=== PATIENT | female | born 1950 | race Caucasian/White ===

== ENCOUNTER 2016-10-12 14:54 | Emergency (ER) | payer MEDICARE ==
[2016-10-12 15:09] VITALS: BP 110/71; PULSE 73; RESP 20; TEMP 97.8; O2SAT 98
[2016-10-12] MEDS ORDERED: GABA100C4 PO (16:42)
[2016-10-12] MEDS ORDERED: ATOR10TA15 PO (16:42)
[2016-10-12] MEDS ORDERED: LISI2.5T3 PO (16:42)
[2016-10-12] MEDS ORDERED: GLIP5TAB8 PO (16:42)
[2016-10-12] MEDS ORDERED: CANA300T PO (16:42)
[2016-10-12 16:45] VITALS: BP 139/84; PULSE 67; RESP 18; O2SAT 100
[2016-10-12] MEDS ORDERED: SODIUM CHLOR 0.9% 1000 ML INJ 1,000 ML IV ONE (17:00)
--- NOTE | 2016-10-12 17:37 | PD ---
HPI . Dizziness Chief Complaint: Dizziness Time Seen by Provider: 16:57 Travel History International Travel<30 days: No Contact w/Intl Traveler<30days: No Traveled to known affect area: No History of Present Illness HPI This patient presents with about a 3 day history of lightheadedness and blurred vision. She states that she is a diabetic on oral hypoglycemics. She ran out of her oral hypoglycemic several days ago. She states that the pharmacy did not have any and stop so she was not able to get it refilled until couple days ago. She states that she is now back on her oral hypoglycemic but that the lightheadedness and blurred vision has persisted. She was seen at a doctor's office and had a fingerstick blood sugar done which was over 200. The patient reports that that is very high for her. Further reports that the doctor wanted her to come here and have a CT of her head. The patient does not have any headache. She does not have any localizing signs such as one-sided weakness. She reports no exacerbating factors with her dizziness. PFSH Past Medical History Diabetes: Yes Patient Takes Glucophage: No Tetanus Vaccination: > 5 Years Influenza Vaccination: No ?: Not Menopausal: Yes Past Surgical History Surgical History: No Previous Surgery Social History Alcohol Use: Yes (Occ.) Tobacco Use: No Substance Use: No Allergies-Medications (Allergen,Severity, Reaction): Coded Allergies: No Known Allergies (Unverified , 10/12/16) Reported Meds & Prescriptions Reported Meds & Active Scripts Active Reported Lisinopril 2.5 Mg Tab 2.5 Mg PO DAILY Gabapentin 100 Mg Cap 100 Mg PO BID Atorvastatin (Atorvastatin Calcium) 10 Mg Tab 10 Mg PO HS Glipizide 5 Mg Tab 5 Mg PO DAILY Take 30 minutes before a meal Invokana (Canagliflozin) 300 Mg Tab 300 Mg PO DAILY Take before 1st meal of day. Review of Systems Except as stated in HPI: all other systems reviewed are Neg Eyes: Positive: Blurred Vision HENT: Positive: Lightheadedness Physical Exam Narrative GENERAL: Patient is awake and alert and in no acute distress. SKIN: Warm and dry. HEAD: Atraumatic. Normocephalic. EYES: Pupils equal and round. Extraocular movements are intact. ENT: No nasal bleeding or discharge. Mucous membranes pink and moist. NECK: Trachea midline. Neck is supple. CARDIOVASCULAR: Regular rate and rhythm. Heart sounds are normal. RESPIRATORY: No accessory muscle use. Lungs are clear with full air movement throughout. GASTROINTESTINAL: Abdomen soft, non-tender, nondistended. MUSCULOSKELETAL: No obvious deformities. No edema. NEUROLOGICAL: Awake and alert. No obvious cranial nerve deficits. Motor grossly within normal limits. Normal speech. [id number] exam is intact. PSYCHIATRIC: Appropriate mood and affect; insight and judgment normal. Data Data Last Documented VS Vital Signs Date Time Temp Pulse Resp B/P Pulse Ox O2 Delivery O2 Flow Rate FiO2 10/12/16 16:45 67 18 139/84 100 Room Air 10/12/16 15:09 97.8 Orders Sodium Chlor 0.9% 1000 Ml Inj (Ns 1000 M (10/12/16 17:00) Ct Brain W/O Iv Contrast(Rout) (10/12/16 16:59) Blood Glucose (10/12/16 18:03) MDM Medical Decision Making Medical Screen Exam Complete: Yes Emergency Medical Condition: Yes Differential Diagnosis Differential diagnosis of dizziness includes but is not limited to vertigo, dehydration, acute blood loss, sepsis, ACS Narrative Course This patient presents with the chief complaint of lightheadedness and blurred vision. She was out of her oral hypoglycemic for a few days. She had the onset of her symptoms while she was out of medication. She is now back on the medication but symptoms have persisted. Fingerstick blood sugar done earlier at another facility was greater than 200. I suspect that her symptoms are related to the hypoglycemia. However, the doctor that she saw as an outpatient wanted her to have a CT of her head. I have ordered IV fluids and the CT. CT is negative. Fingerstick blood sugar following a liter of fluid was 130. Patient reports that she is feeling markedly improved. Diagnosis Primary Impression: Dizziness Additional Impressions: Blurred vision Hyperglycemia Patient Instructions: Diabetic Hyperglycemia (DC), General Instructions Disposition: DISCHARGE HOME Condition: Stable Cristina Coyle MD Oct 12, 2016 17:37
--- NOTE | 2016-10-12 18:49 | RADRPT ---
EXAM DATE/TIME: 10/12/2016 18:23 [facility] COMPARISON: No previous studies available for comparison. INDICATIONS : Dizziness with blurred vision. RADIATION DOSE: 61.71 CTDIvol (mGy) MEDICAL HISTORY : Diabetes. SURGICAL HISTORY : None. ENCOUNTER: Initial ACUITY: 2 days PAIN SCALE: 0/10 LOCATION: cranial TECHNIQUE: Multiple contiguous axial images were obtained of the head. Using automated exposure control and adj ustment of the mA and/or kV according to patient size, radiation dose was kept as low as reasonably a chievable to obtain optimal diagnostic quality images. DICOM format image data is available electro nically for review and comparison. FINDINGS: Remote left caudate lacunar infarct. No signs of acute infarct, hemorrhage or mass. No fracture. CONCLUSION: No acute disease. Joseph Norton MD on October 12, 2016 at 18:47 Board Certified Radiologist. This report was verified electronically.
[2016-10-12 19:30] VITALS: BP 119/81
== END 2016-10-12 19:29 | disposition home or self-care (01) ==
LOC: PHED 14:54
DX: R42 Dizziness and giddiness (principal); H53.8 Other visual disturbances; E11.65 Type 2 diabetes mellitus with hyperglycemia
CPT/HCPCS: 70450; 96360; 99284; J7030